=== PATIENT | female | born 1990 | race Caucasian/White ===

== ENCOUNTER 2019-01-10 11:24 | Day surgery (SDC) | payer OTHER, SELFPAY ==
[~2019-01-10] VITALS: Ht 172.7 cm; Wt 88.9 kg
[~2019-01-10 11:24] MED LIST: BUPR150T3 PO; HYDR-3363 PO; LAMO200T2 PO; LIDOCAINE 1% MDV 20ML VIAL SQ PRN; LR 1,000 ML IV ONE; PANT40TA3 PO; PRAZ2CAP PO; PROAAER10 INH; TOPI100T9 PO; VITA50005 PO
[2019-01-10] MEDS ORDERED: PROPOFOL 200 MG/20 ML VIAL As Ordered ONE (12:02)
[2019-01-10] MEDS ORDERED: dexameTHASONE 4 MG/ML 1ML VIAL (J1100) As Ordered ONE (12:02)
[2019-01-10] MEDS ORDERED: ONDANSETRON 4MG/2ML VIAL (J2405) As Ordered ONE ×2 (12:02→15:50)
[2019-01-10] MEDS ORDERED: LIDOCAINE 2% INJ 100 MG/5 ML SDV (FOR ANES.) As Ordered ONE ×2 (12:02→14:48)
[2019-01-10] MEDS ORDERED: MIDAZOLAM INJ 2 MG/2 ML VIAL (J2250) As Ordered ONE (12:03)
[2019-01-10] MEDS ORDERED: fentaNYL 100 MCG/2 ML INJECTION (J3010) As Ordered ONE (12:03)
[2019-01-10 12:22] LABS: URINE PREG TEST NEGATIVE (NEGATIVE)
[2019-01-10] MEDS ORDERED: SCOPOLAMINE 1MG TRANSDERMAL PATCH TOP ONE (13:30)
[2019-01-10] MEDS ORDERED: KETOROLAC 60 MG/2 ML VIAL (J1885) As Ordered ONE (15:12)
[2019-01-10] MEDS ORDERED: PERCOCET 5MG/325MG TAB As Ordered ONE (15:50)
[2019-01-10] MEDS ORDERED: NORCO, ANEXSIA 5/325MG TABLET (HYDROcodone/ACETAMINOPHEN) PO PRN (16:00)
[2019-01-10] MEDS ORDERED: IBUPROFEN 600 MG TAB PO PRN (16:00)
[2019-01-10] MEDS ORDERED: LR 1,000 ML IV SCH ×2 (16:00→16:15)
[2019-01-10] MEDS ORDERED: METOCLOPRAMIDE INJ 10MG/2ML VIAL (J2765) IV PRN (16:15)
[2019-01-10] MEDS ORDERED: MEPERIDINE INJ 25 MG/ML VIAL (J2175) IV PRN (16:15)
[2019-01-10] MEDS ORDERED: PERCOCET 5MG/325MG TAB PO PRN (16:15)
[2019-01-10] MEDS ORDERED: ONDANSETRON 4MG/2ML VIAL (J2405) IV PRN (16:15)
[2019-01-10] MEDS ORDERED: fentaNYL 100 MCG/2 ML INJECTION (J3010) IV PRN (16:15)
[2019-01-10 17:00] VITALS: BP 101/59
--- NOTE | 2019-01-11 06:13 | RO ---
DATE OF PROCEDURE: 01/10/2019 PREOPERATIVE DIAGNOSIS: Menometrorrhagia and dysmenorrhea. POSTOPERATIVE DIAGNOSIS: Menometrorrhagia and dysmenorrhea. PROCEDURE: Dilation and curettage (D and C), hysteroscopy, NovaSure ablation. SURGEON: Dr. Merna García [employer] SALES MANAGER MEDICAL: None. ANESTHESIA: Laryngeal mask airway (LMA). BRIEF DESCRIPTION OF PROCEDURE AND FINDINGS: Igor was brought to the operating room where sufficient LMA anesthesia was induced and she was prepped, draped and positioned in the usual sterile fashion with the bladder emptied and the cervix grasped with a single tooth tenaculum. With some effort, the uterus would be approachable from below. The cervix was gently dilated and the uterus sounded. The cavity length was measured at 4.5 at this point. She had subsequent measurement of width at 2.8. At this point, we did not have that, we just had cavity length. The cervix was then dilated sufficient to allow introduction of the hysteroscope which was used to visualize the endometrial cavity. Overgrowth of the endometrium was noted consistent with the patient's bleeding history and normal tubal ostia and no specific polyps. There was some tissue that was unlifted by the scope itself, but no polypoid lesions, just overgrowth, pretty much circumferentially. We then did a curettage, resampled this endometrium and then placed the NovaSure device. Again, cavity length was set at 5.6, width was measured at 2.8 at this point, and we went ahead and had an uncomplicated endometrial ablation. The procedure was then ended. Estimated blood loss for the procedure was 2 mL. Fluid replacement was crystalloid. Complications: None. Condition and Disposition: Igor tolerated the procedure well and was recovering in the recovery room in good condition.
== END 2019-01-10 17:30 | disposition home or self-care (01) ==
LOC: M SDC 11:24
PROVIDERS: ATTEND Obstetrics & Gynecology
DX: N92.0 Excessive and frequent menstruation with regular cycle (principal); N94.6 Dysmenorrhea, unspecified; F43.10 Post-traumatic stress disorder, unspecified; K21.9 Gastro-esophageal reflux disease without esophagitis; M54.2 Cervicalgia; F12.90 Cannabis use, unspecified, uncomplicated; F17.290 Nicotine dependence, other tobacco product, uncomplicated; Z91.09 Other allergy status, other than to drugs and biological substances; Z79.899 Other long term (current) drug therapy; Z86.718 Personal history of other venous thrombosis and embolism
CPT/HCPCS: 58563; 84703; 88305; J1100; J1885; J2250; J2405; J3010